=== PATIENT | male | born 1965 ===

== ENCOUNTER 2016-12-12 09:12 | Day surgery (SDC) | payer BC ==
[~2016-12-12 09:12] MED LIST: Lactated Ringers 1,000 ML IV SCH; Lidocaine 1% 2 ML SDV ONE; Lidocaine 1%/Sod Bicarbonate in NS 8.4% 1 ML Syringe IV PRN; Propofol 200 MG/20 ML SDV ONE; Sodium Chloride 0.9% 10 ML Syringe FLUSH PRN
--- NOTE | 2016-12-12 09:56 | PCM.PREANE ---
Preanesthetic Assessment - Physical Assessment NPO Status Date: 12/11/16 NPO Status Time: 23:30 O2 Sat by Pulse Oximetry: 97 Respiratory Rate: 16 Vital Signs: Last Vital Signs Temp 36.8 C 12/12/16 09:25 Pulse 93 12/12/16 09:25 Resp 16 12/12/16 09:25 BP 146/76 H 12/12/16 09:25 Pulse Ox 97 12/12/16 09:25 Height: 1.73 m Weight: 78.471 kg - Allergies Allergies/Adverse Reactions: Allergies Allergy/AdvReac Type Severity Reaction Status Date / Time No Known Allergies Allergy Verified 12/11/16 12:58 PreAnesthesia Questionnaire Cardiovascular History: Reports: None Respiratory History: Reports: None Gastrointestinal History: Reports: None Genitourinary History: Reports: Other (see below) Other Genitourinary History: hematuria 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 Musculoskeletal History: Reports: Other (see below) Other Musculoskeletal History: Left knee pain Neurological History: Reports: None Psychiatric History: Reports: None Endocrine/Metabolic History: Reports: None Hematologic History: Reports: None Immunologic History: Reports: None Oncologic (Cancer) History: Reports: None Dermatologic History: Reports: None - Past Surgical History Head Surgeries/Procedures: Reports: None HEENT Surgical History: Reports: Naso-sinus surgery, Other (see below) Other HEENT Surgeries/Procedures: middle ear surgery Male Surgical History: Reports: Vasectomy - SUBSTANCE USE Smoking Status *Q: Current Every Day Smoker Tobacco Use Within Last Twelve Months: Snuff/Dip Recreational Drug Use History: No - HOME MEDS Home Medications: Home Meds Meloxicam 1 - 2 tab PO DAILY PRN 12/11/16 [History] - CURRENT (IN HOUSE) MEDS Current Meds: Current Medications Lactated Ringer's (Ringers, Lactated) 1,000 mls @ 125 mls/hr IV ASDIRECTED WALTER Stop: 12/12/16 23:00 Last Admin: 12/12/16 09:30 Dose: 125 mls/hr Lidocaine/Sodium Bicarbonate (Buffered Lidocaine 1% In Ns 8.4%) 0.25 ml IV ONETIME PRN PRN Reason: Prior to IV Start Stop: 12/12/16 18:00 Last Admin: 12/12/16 09:29 Dose: 0.25 ml Sodium Chloride (Saline Flush) 10 ml FLUSH ASDIRECTED PRN PRN Reason: Keep Vein Open Stop: 12/12/16 18:00 Discontinued Medications Lidocaine HCl (Lidocaine 1%) Confirm Administered Dose 6 ml .ROUTE .STK-MED ONE Stop: 12/12/16 07:50 Propofol (Diprivan 20 Ml) Confirm Administered Dose 200 mg .ROUTE .STK-MED ONE Stop: 12/12/16 07:50 Preanesthetic Assessment - ANESTHESIA/TRANSFUSION/FAMILY HX Anesthesia/Transfusion History: No Prior Transfusion(s), Prior Anesthesia Type of Anesthesia Reaction: Denies: Allergy, Anesthesia Awareness, Excessive Somnolence, Excessive Nausea/Vomiting, Excessive Itching, Excessive Shivering, Malignant Hyperthermia, Malignant Hyperthermia, Family History, Pseudocholinesterase Deficiency, Pseudocholinesterase Deficiency, Family History of, Urinary Retention, Unknown, Other (see below) Family History of Anesthesia Reaction: No Intubation History: Unknown - REVIEW OF SYSTEMS Constitutional: Reports: no symptoms 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 Respiratory: Reports: no symptoms (quit smoking 20 yrs ago.) Cardiovascular: Reports: no symptoms GI: Reports: no symptoms Other: Reports: None - PHYSICAL ASSESSMENT HR: 93 O2 Sat by Pulse Oximetry: 97 RR: 24 BP: 146/76 Temp: 36.8 C Vital Signs: Last Vital Signs Temp 36.8 C 12/12/16 09:25 Pulse 93 12/12/16 09:25 Resp 16 12/12/16 09:25 BP 146/76 H 12/12/16 09:25 Pulse Ox 97 12/12/16 09:25 Height: 1.73 m Weight: 79 kg NPO Status Date: 12/11/16 NPO Status Time: 23:30 ASA Class: 1 Mental Status: Alert & Oriented x3 Airway Class: Mallampati = 2 Dentition: Reports: Normal Dentition, Caries Thyro-Mental Finger Breadths: 3 Mouth Opening Finger Breadths: 3 ROM/Head Extension: Full Respiratory Status: lungs clear to auscultation bilaterally Cardiovascular Status: regular rate & rhythm, normal S1, S2, no murmur - LAB Values: Reviewed and noted. - ALLERGIES Allergies/Adverse Reactions: Allergies Allergy/AdvReac Type Severity Reaction Status Date / Time No Known Allergies Allergy Verified 12/11/16 12:58 - ANESTHESIA PLAN Preop Beta Braxton: No Anesthesia Type Planned: MAC - ACKNOWLEDGEMENTS Pt an Appropriate Candidate for the Planned Anesthesia: Yes Alternatives and Risks of Anesthesia Discussed w Pt/Guardian: Yes Pt/Guardian Understands and Agrees with Anesthesia Plan: Yes
[2016-12-12] MEDS ORDERED: Midazolam 1 MG/ML 2 ML SDV ONE (11:03)
[2016-12-12] MEDS ORDERED: fentaNYL 100 MCG/2 ML SDV ONE (11:03)
--- NOTE | 2016-12-12 11:49 | PCM.OPNOTE ---
- General Post-Op/Procedure Note Date of Surgery/Procedure: 12/12/16 Operative Procedure(s): Colonoscopy with multiple biopsies of a suspicious sigmoid lesion Findings: 1. eccentric sigmoid mass at 30 cm from the anal verge with central umbilication and about 2 cm in diameter 2. sigmoid diverticulosis 3. uncomplicated internal hemorrhoids Pre Op Diagnosis: screening colonsocopy Post-Op Diagnosis: 1. sigmoid mass. 2. sigmoid diverticulosis. 3. internal hemorrhoids Anesthesia Technique: MAC, Moderate sedation Primary Surgeon: Catrachito Segura Pathology: bx's of sigmoid mass EBL in mLs: 0 Complications: None Condition: Good Free Text/Narrative:: After adequate IV sedation and analgesia was obtained the patient was placed on his left side. Perianal inspection and digital examination revealed the internal hemorrhoids. The prostate was normal. A lubricated colonoscope was inserted into the rectum then advanced under direct vision to the cecum without difficulty. The bowel preparation was excellent. The cecum, right colon, and transverse colon were endoscopically normal with no mass, lesions or inflammatory changes seen. Descending colon was unremarkable as well. Within the sigmoid at about 30 cm there was a mass like lesion about 2 cm in diameter, which was eccentric and had a central umbilication. It was firm endoscopically. Four biopsies were taken for histologic review. There were a few scattered diverticula that were uncomplicated. The rectum was unremarkable. Photographs were taken for the patient and for the record. There were no complications.
--- NOTE | 2016-12-12 11:54 | PCM48HPAN ---
Post Anesthesia Note - EVALUATION WITHIN 48HRS OF ANESTHETIC Vital Signs in Normal Range: Yes Patient Participated in Evaluation: Yes Respiratory Function Stable: Yes Airway Patent: Yes Cardiovascular Function Stable: Yes Hydration Status Stable: Yes Pain Control Satisfactory: Yes Nausea and Vomiting Control Satisfactory: Yes Mental Status Recovered: Yes
[2016-12-12 12:32] VITALS: BP 129/88
== END 2016-12-12 12:30 | disposition home or self-care (01) ==
LOC: JD.SDS 09:12
PROVIDERS: ATTEND Surgery
PROC: 0DBE8ZX Excision of Large Intestine, Via Natural or Artificial Opening Endoscopic, Diagnostic (ICD-10-PCS; principal; 2016-12-12)
DX: Z12.11 Encounter for screening for malignant neoplasm of colon (principal); K57.30 Diverticulosis of large intestine without perforation or abscess without bleeding; K64.8 Other hemorrhoids; Z98.52 Vasectomy status; Z98.890 Other specified postprocedural states; Z80.0 Family history of malignant neoplasm of digestive organs; Z87.891 Personal history of nicotine dependence
CPT/HCPCS: 45380; 88305; J2250; J3010; J7120; J2704

== ENCOUNTER 2017-01-16 07:07 | Day surgery (SDC) | payer BC ==
[~2017-01-16 07:07] MED LIST changes: -Lidocaine 1% 2 ML SDV ONE; -Propofol 200 MG/20 ML SDV ONE
--- NOTE | 2017-01-16 07:33 | PCM.PREANE ---
Preanesthetic Assessment - Procedure Proposed Procedure: Colonoscopy - Anesthesia/Transfusion/Family Hx Anesthesia History: Prior Anesthesia Without Reaction Family History of Anesthesia Reaction: No Transfusion History: No Prior Transfusion(s) Intubation History: Unknown - Review of Systems General: No Symptoms Pulmonary: No Symptoms Cardiovascular: No Symptoms Gastrointestinal: No symptoms Neurological: No Symptoms Other: Reports: None - Physical Assessment NPO Status Date: 01/15/17 NPO Status Time: 22:00 Pulse: 80 O2 Sat by Pulse Oximetry: 97 Respiratory Rate: 16 Blood Pressure: 123/69 Temperature: 36.8 C Height: 1.73 m Weight: 79 kg ASA Class: 2 Mental Status: Alert & Oriented x3 Dentition: Reports: Normal Dentition Thyro-Mental Finger Breadths: 3 Mouth Opening Finger Breadths: 5 ROM/Head Extension: Full Lungs: Clear to auscultation, Normal respiratory effort Cardiovascular: Regular Rate, Regular Rhythm - Allergies Allergies/Adverse Reactions: Allergies Allergy/AdvReac Type Severity Reaction Status Date / Time No Known Allergies Allergy Verified 01/15/17 17:19 - Blood Product(s) Available: None - Anesthesia Plan Pre-Op Medication Ordered: None - Acknowledgements Anesthesia Type Planned: MAC Pt an Appropriate Candidate for the Planned Anesthesia: Yes Alternatives and Risks of Anesthesia Discussed w Pt/Guardian: Yes Pt/Guardian Understands and Agrees with Anesthesia Plan: Yes PreAnesthesia Questionnaire Cardiovascular History: Reports: None Respiratory History: Reports: None Gastrointestinal History: Reports: None Genitourinary History: Reports: Other (see below) Other Genitourinary History: hematuria 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 Musculoskeletal History: Reports: Other (see below) Other Musculoskeletal History: Left knee pain Neurological History: Reports: None Psychiatric History: Reports: None Endocrine/Metabolic History: Reports: None Hematologic History: Reports: None Immunologic History: Reports: None Oncologic (Cancer) History: Reports: None Dermatologic History: Reports: None - Past Surgical History Head Surgeries/Procedures: Reports: None HEENT Surgical History: Reports: Naso-sinus surgery, Other (see below) Other HEENT Surgeries/Procedures: middle ear surgery Male Surgical History: Reports: Vasectomy - SUBSTANCE USE Smoking Status *Q: Current Every Day Smoker Tobacco Use Within Last Twelve Months: Snuff/Dip Recreational Drug Use History: No - HOME MEDS Home Medications: Home Meds Meloxicam 1 - 2 tab PO DAILY PRN 12/11/16 [History] - CURRENT (IN HOUSE) MEDS Current Meds: Current Medications Lactated Ringer's (Ringers, Lactated) 1,000 mls @ 125 mls/hr IV ASDIRECTED WALTER Lidocaine/Sodium Bicarbonate (Buffered Lidocaine 1% In Ns 8.4%) 0.25 ml IV ONETIME PRN PRN Reason: Prior to IV Start Sodium Chloride (Saline Flush) 10 ml FLUSH ASDIRECTED PRN PRN Reason: Keep Vein Open Discontinued Medications Lidocaine HCl (Xylocaine-Mpf 1%) Confirm Administered Dose 4 mls @ as directed .ROUTE .STK-MED ONE Stop: 01/16/17 07:39 Propofol (Diprivan 20 Ml) Confirm Administered Dose 200 mg .ROUTE .STK-MED ONE Stop: 01/16/17 07:39
[2017-01-16] MEDS ORDERED: Propofol 200 MG/20 ML SDV ONE (07:38)
[2017-01-16] MEDS ORDERED: Lidocaine 1% 4 ML ONE (07:38)
--- NOTE | 2017-01-16 08:23 | PCM.OPNOTE ---
- General Post-Op/Procedure Note Date of Surgery/Procedure: 01/16/17 Operative Procedure(s): colonoscopy proximal to the sigmoid flexure into the distal transverse colon Findings: Sigmoid diverticulosis but no mass. Sigmoid circular muscle hypertrophy. Pre Op Diagnosis: suspicious sigmoid / biopsy negative Post-Op Diagnosis: 1. large sigmoid diverticuli. 2. spastic sigmoid colon Anesthesia Technique: MAC, Moderate sedation Primary Surgeon: Catrachito Segura Pathology: none EBL in mLs: 0 Complications: None Condition: Good Free Text/Narrative:: After adequate IV sedation, and analgesia were obtained the patient was placed on his left side. Perianal inspection and digital rectal examination were performed and were unremarkable. A lubricated colonoscope was inserted into the rectum with air insufflation the scope was passed through the sigmoid into the descending colon, and then around the splenic flexure to the transverse colon. The bowel preparation was adequate. The distal transverse colon, and descending colon were endoscopically normal with no mass lesions inflammatory changes seen. The sigmoid colon had significantly thickened circular muscular hypertrophy in conjunction with a large sigmoid diverticuli. The area that was previously seen of concern and biopsied was unremarkable. I suspect the sigmoid spasm and mucosal erythema from the endoscopy attempt performed before was secondary to scope trauma. There were no obvious mass lesion seen on this exam. There were no inflammatory changes throughout the entire examination. The rectum in both views was unremarkable. 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 Air was removed as I finished the procedure , which he tolerated well.
[2017-01-16 08:38] VITALS: BP 130/75
== END 2017-01-16 08:48 | disposition home or self-care (01) ==
LOC: JD.SDS 07:07
PROVIDERS: ATTEND Surgery
DX: K57.30 Diverticulosis of large intestine without perforation or abscess without bleeding (principal); Z98.890 Other specified postprocedural states; Z98.52 Vasectomy status; F17.210 Nicotine dependence, cigarettes, uncomplicated; Z79.899 Other long term (current) drug therapy
CPT/HCPCS: 45378; J7120; 00810; J2704

== ENCOUNTER 2024-10-08 06:27 | Day surgery (SDC) | payer BC ==
[~2024-10-08 06:27] MED LIST changes: -Lactated Ringers 1,000 ML IV SCH; -Lidocaine 1%/Sod Bicarbonate in NS 8.4% 1 ML Syringe IV PRN; +Sodium Chloride 0.9% 10 ML Syringe FLUSH SCH
[2024-10-08] MEDS: Lactated Ringers 1,000 ML IV SCH (06:45)
[2024-10-08] MEDS ORDERED: Lidocaine 1% 5 ML VIAL ONE (07:14)
[2024-10-08] MEDS ORDERED: Propofol 200 MG/20 ML SDV ONE ×2 (07:14→08:42)
[2024-10-08 11:52] VITALS: BP 126/78; PULSE 78
== END 2024-10-08 09:38 | disposition home or self-care (01) ==
LOC: JD.SDS 06:27
PROVIDERS: ATTEND Surgery
DX: Z12.11 Encounter for screening for malignant neoplasm of colon (principal); Z80.0 Family history of malignant neoplasm of digestive organs
CPT/HCPCS: 45378; J2704; J7120; J3490